=== PATIENT | female | born 1990 | race Hispanic/Latino ===

== ENCOUNTER 2019-10-05 17:40 | Emergency (ER) | payer MEDICAID ==
[~2019-10-05 17:40] MED LIST: PREN-196 PO
[2019-10-05] MEDS ORDERED: ACETAMINOPHEN EXTRA STRENGTH 500 MG TABLET ONE (17:57)
[2019-10-05] MEDS ORDERED: AMOXICILLIN 500 MG CAPSULE PO ONE (17:58)
== END 2019-10-05 18:53 | disposition home or self-care (01) ==
LOC: EDH 17:40
DX: H66.91 Otitis media, unspecified, right ear (principal); Z72.0 Tobacco use

== ENCOUNTER 2023-01-12 08:40 | Emergency (ER) | payer MEDICAID ==
[~2023-01-12] VITALS: Ht 152.4 cm; Wt 83.9 kg
[2023-01-12 08:43] VITALS: BP 147/102
[2023-01-12] MEDS ORDERED: AMOX/CLAV 875/125MG TAB PO ONE (10:30)
[2023-01-12] MEDS ORDERED: ACETAMINOPHEN WITH CODEINE 1 TAB TAB PO ONE (10:30)
[2023-01-12] MEDS ORDERED: KETOROLAC 30MG VIAL (30MG/ML) IM ONE (10:30)
[2023-01-12] MEDS ORDERED: AMOX1TAB16 PO (10:34)
[2023-01-12] MEDS ORDERED: ACET-2079 PO (10:34)
== END 2023-01-12 10:45 | disposition home or self-care (01) ==
LOC: EDH 08:40
DX: H72.92 Unspecified perforation of tympanic membrane, left ear (principal); H65.93 Unspecified nonsuppurative otitis media, bilateral
CPT/HCPCS: 99283; 96372; J1885